=== PATIENT | female | born 1995 | race Caucasian/White ===

== ENCOUNTER 2021-10-12 15:12 | Emergency (ER) | payer OTHER, BC | END 2021-10-12 16:04 | disposition home or self-care (01) | LOC: CSHERS 15:12 | DX: S60.413A Abrasion of left middle finger, initial encounter (principal); X58.XXXA Exposure to other specified factors, initial encounter; Y92.410 Unspecified street and highway as the place of occurrence of the external cause | CPT/HCPCS: 99281 ==